=== PATIENT | female | born 1990 | race Caucasian/White ===

== ENCOUNTER 2017-01-04 13:24 | Emergency (ER) | payer OTHER ==
[~2017-01-04 13:24] MED LIST: DITRO5 PO; IBU800 PO; LEVAQUIN750 MG PO; PCET PO; PYRIDIUM PO; ZYRTEC ALLGY10 MG PO
== END 2017-01-04 14:12 | disposition home or self-care (01) ==
LOC: ER 13:24
DX: J02.9 Acute pharyngitis, unspecified (principal); Z87.442 Personal history of urinary calculi; Z88.8 Allergy status to other drugs, medicaments and biological substances; Z79.899 Other long term (current) drug therapy
CPT/HCPCS: 99282